=== PATIENT | female | born 1995 ===

== ENCOUNTER 2018-11-02 14:14 | Emergency (ER) | payer SELFPAY ==
[~2018-11-02] VITALS: Ht 167.6 cm; Wt 129.0 kg
[2018-11-02] MEDS ORDERED: LORazepam 2 MG/ML, 1ML ONE (14:21)
[2018-11-02] MEDS ORDERED: LORazepam 2 MG/ML, 1ML IVPush ONE (14:30)
--- NOTE | 2018-11-02 14:30 | NUR ---
bib remsa post syncope w cp locates upper L chest hx same multi med visits wo resove over the past year
[2018-11-02 14:56] LABS: BASOPHILS # (AUTO) 0.05 x10^3/uL (0-0.1); BASOPHILS % (AUTO) 0 % (0-1); EOSINOPHILS # (AUTO) 0.03 x10^3/uL (0-0.4); EOSINOPHILS % (AUTO) 0 % (1-7); LYMPHOCYTES % (AUTO) 30 % (22-44); MD NO; MEAN CORPUSCULAR HEMOGLOBIN 20.8 pg (27.0-34.8); MEAN CORPUSCULAR HGB CONC 31.5 g/dL (32.4-35.8); MEAN CORPUSCULAR VOLUME 66.1 fL (80-100); MEAN PLATELET VOLUME 7.7 fL (7.4-10.4); MONOCYTES # (AUTO) 0.55 x10^3/uL (0.2-0.8); MONOCYTES % (AUTO) 5 % (2-9); NEUTROPHILS # (AUTO) 7.57 x10^3/uL (1.8-6.8); NEUTROPHILS % (AUTO) 65 % (42-75); PLATELET COUNT 509 x10^3/uL (130-400); RED BLOOD COUNT 5.22 x10^6/uL (3.82-5.3); RED CELL DISTRIBUTION WIDTH 19.2 % (9.6-15.2)
[2018-11-02 15:08] LABS: ALBUMIN 3.4 g/dL (3.4-5.0); ANION GAP 6 mmol/L (5-15); CALCIUM 8.2 mg/dL (8.5-10.1); CHLORIDE 110 mmol/L (98-107); CREATININE 0.89 mg/dL (0.55-1.02)
[2018-11-02 15:12] LABS: T4 (THYROXINE) 13.8 mcg/dL (4.8-13.9); TROPONIN I 0.041 ng/mL (0.000-0.045)
--- NOTE | 2018-11-02 15:50 | NUR ---
pt has been to ct and now returned to ed
[2018-11-02] MEDS ORDERED: OMNIPAQUE 350 MG/ML, 200ML BOTTLE ONE (15:53)
[2018-11-02] MEDS ORDERED: KETOROLAC 30 MG/1 ML ONE (17:09)
[2018-11-02] MEDS ORDERED: PROMETHAZINE 25 MG/ML, 1ML ONE (17:09)
[2018-11-02 17:16] VITALS: BP 136/65
--- NOTE | 2018-11-02 17:20 | NUR ---
PT MEDICATED WITH PHENERGAN AND TORADOL FOR FRITZ. VS UPDATED AND WNL.
[2018-11-02] MEDS ORDERED: KETOROLAC 60 MG/2 ML IVPush ONE (17:30)
[2018-11-02] MEDS ORDERED: PROMETHAZINE 25 MG/ML, 1ML IM ONE (17:30)
--- NOTE | 2018-11-02 18:30 | NUR ---
Patient/Caregiver given discharge instructions and they have confirmed that they understand the instructions. Patient ambulatory with steady gait.
== END 2018-11-02 18:31 | disposition home or self-care (01) ==
LOC: ED 14:56
DX: R55 Syncope and collapse (principal); F41.1 Generalized anxiety disorder; R06.4 Hyperventilation; Z86.69 Personal history of other diseases of the nervous system and sense organs
CPT/HCPCS: 36415; 71045; 71275; 80048; 82040; 84436; 84443; 84484; 84703; 85025; 93005; 96372; 96374; 96375; 99284; J1885; J2060; J2550; Q9967